=== PATIENT | male | born 1985 ===

== ENCOUNTER 2025-07-26 20:03 | Emergency (ER) | payer MEDICAID ==
[~2025-07-26] VITALS: Ht 182.9 cm; Wt 125.0 kg
[2025-07-26 20:13] VITALS: BP_SYST 169
--- NOTE | 2025-07-26 22:10 | RADIOLOGY REPORT ---
EXAM: DI CHEST,SINGLE VIEW CLINICAL HISTORY: SOB TECHNIQUE: Single AP view of the chest WID: COMPARISON: None FINDINGS: Lines and tubes: None Chest: The heart size and pulmonary vasculature is within normal limits. No pleural effusion, pneumothorax, or consolidation. The osseous structures are grossly intact. Multilevel thoracic spondylosis IMPRESSION: 1. No acute cardiopulmonary abnormality.
[2025-07-26] MEDS ORDERED: ipratropium/albuterol 3ml nebule NEB PRN (23:35)
[2025-07-26 23:43] VITALS: PULSE 86; RESP 16; O2SAT 96
[2025-07-26] MEDS: albuterol 2.5 MG/3 ML nebule NEB ONE (23:43)
[2025-07-26 23:51] VITALS: PULSE 88; RESP 16
[2025-07-27] MEDS: dexamethasone sod phosphate 10mg/ml inj IM STA (00:05)
--- NOTE | 2025-07-27 00:15 | Physician Documentation ---
History of Present Illness ~ Chief Complaint: Shortness of Breath Stated Complaint: DIFFICULTY BREATHING Time Seen by MD: 22:57 HPI Patient 40-year-old male who reports to the emergency department for shortness of breath accompanied by inspiratory and expiratory wheezing. Patient reports that he has been living at a inpatient facility for approximately a month. Patient reports that he has been experiencing illness for approximately a week with progression in his shortness of breath cough and wheezing. Reports he has a history of asthma patient has not used an inhaler. Patient denies fever chills nausea vomiting diarrhea at this time. Patient denies chest pain chest pressure radiating pain palpitations syncopal episodes lightheadedness dizziness or any other concerning symptoms this time. Review of Systems ROS As stated above in the HPI, otherwise all systems are reviewed and negative. Physical Exam Vital Signs: Temperature: 98.0, Source: Temporal, Heart Rate: 88, Respiratory Rate: 16, BP: 169/, Pulse Oximetry: 96, Weight: 125.000 Oxygen Flow Rate: 0 Physical Exam VITALS: Reviewed and as above. GENERAL: Alert, no apparent distress. HEENT: Normocephalic, atraumatic, PERRL, EOMI, dry mucosa, no erythema RESPIRATORY: Mild inspiratory expiratory wheezes on the right side noted auscultation, moving air into the bases bilaterally, cough with deep inspiration noted. CHEST: No accessory muscle use, no retractions CV: Regular rate, rhythm, no edema, no murmur, No: JVD GI: Soft, non-tender, bowels sounds present, no rebound, guarding, or rigidity BACK: No CVA tenderness, or swelling MUSCULOSKELETAL No deformities, no edema SKIN: Warm and dry, no rash NEURO: Oriented x4, No motor or sensory deficit PSYCH: Normal mood and affect, no agitation Progress Results/Orders Results/Orders Orders - SHELLEY CLIFTON [employer] Chest,Single View (07/26/25 20:16) Ipratropium/Albuterol Nebule (Ipratrop/A (07/26/25 23:35) * Rt Notification Q1H (07/26/25 23:31) Completed Orders - SHELLEY CLIFTON [employer] Chest,Single View (07/26/25 20:16) Albuterol 2.5mg/3ml Nebule (Proventil 2. (07/26/25 23:35) Dexamethasone Inj (Decadron 10mg/Ml Inj) (07/26/25 23:31) Medications Received in ER Medications (Trade) Dose Ordered Sig/Basil Route PRN Reason Start Time Stop Time Status Last Admin Dose Admin (Proventil 2.5 MG/3ML nebule) 2.5 mg ONCE ONCE NEB 07/26/25 23:35 07/26/25 23:36 DC 07/26/25 23:43 2.5 MG (Decadron 10mg/ ml inj) 10 mg ONCE STAT IM 07/26/25 23:31 07/26/25 23:33 DC 07/27/25 00:05 10 MG Vital Signs 07/26/25 07/26/25 07/26/25 20:13 23:43 23:51 Temp 98.0 Pulse 66 86 88 Resp 18 16 16 B/P (MAP) 169/ Pulse Ox 98 96 O2 Delivery Room Air* Room Air* O2 Flow Rate 0 0 0 FiO2 21 21 Medical Decision Making Findings This patient presents with dyspnea, most likely secondary to URI. Presentation not consistent with acute cardiac etiologies to include ACS (non ischemic ekg, unremarkable trop), CHF, pericardial effusion / tamponade . Presentation not consistent with acute respiratory etiologies to include acute PE (Wells low risk), pneumothorax , asthma, COPD exacerbation, allergic etiologies, or infectious etiologies such as PNA. Presentation also not consistent with non- cardiopulmonary causes to include toxidromes, metabolic etiologies such as acidemia or electrolyte derangements, sepsis, neurologic causes (i.e. demyelinating diseases). Patient received DuoNeb treatment and dexamethasone steroids while here in the emergency department with improvement. The patient will follow up with his primary care provider. Patient will return to the emergency department with any worsening of his current symptoms or any additional concerning symptoms that we discussed here today i.e. increased shortness of breath chest pain chest pressure lightheadedness dizziness fever chills nausea vomiting diarrhea or any other concerning symptoms. Differential Dx:Considerations: Include: anxiety, asthma, bronchitis, cardiogenic shock, CHF, COPD, dysrhythmia, hypertension, accelerated, hypertension, essential, hypertension, malignant, hyperventilation, hyponatremia, myocardial infarction, panic attack, pneumonia, pneumonitis, pneumothorax, PSVT, pulmonary embolism, respiratory distress, respiratory failure, sinusitis, upper resp. infection, other Departure Disposition: 01 HOME / SELF CARE / HOMELESS Impression: Primary Impression: Acute upper respiratory infection Additional Impressions: Cough Shortness of breath Asthma Condition: Stable Discharge Instructions: Asthma, Adult, [id number], Upper Respiratory Infection, Adult Additional Instructions: This patient presents with dyspnea, most likely secondary to URI. Presentation not consistent with acute cardiac etiologies to include ACS (non ischemic ekg, unremarkable trop), CHF, pericardial effusion / tamponade . Presentation not consistent with acute respiratory etiologies to include acute PE (Wells low risk), pneumothorax , asthma, COPD exacerbation, allergic etiologies, or inf ectious etiologies such as PNA. Presentation also not consistent with non- cardiopulmonary causes to include toxidromes, metabolic etiologies such as acidemia or electrolyte derangements, sepsis, neurologic causes (i.e. demyelinating diseases). Patient received DuoNeb treatment and dexamethasone steroids while here in the emergency department with improvement. The patient will follow up with his primary care provider. Patient will return to the emergency department with any worsening of his current symptoms or any additional concerning symptoms that we discussed here today i.e. increased shortness of breath chest pain chest pressure lightheadedness dizziness fever chills nausea vomiting diarrhea or any other concerning symptoms. Tylenol ibuprofen as needed for discomfort. Albuterol inhaler prescribed. Please follow up with the primary care provider. Please return to the emergency department with any worsening or recurrent symptoms or any additional concerning symptoms that we discussed here today. Referrals: NO PRIMARY CARE PROVIDER (PCP) Prescriptions albuterol inhaler (Pro-Air Inhaler) 8.5 Gm Inhaler 1-2 PUFFS PO Q4H PRN for shortness of breath for 90 Days, #1 INH Prov: SHELLEY CLIFTON 07/27/25 Education Educated: Patient Educated regarding: diagnosis, treatment, need for follow up Signature Scribe Signature: A Attestation: Scribed for Shelley Clifton by SELENA Acosta . 07/27/25 00:18 SHELLEY CLIFTON Jul 27, 2025 00:14
[2025-07-27] MEDS ORDERED: ALBU8HFA PO (00:17)
[2025-07-27 00:20] VITALS: TEMP 98
== END 2025-07-27 00:25 | disposition home or self-care (01) ==
LOC: ER 20:05
DX: J06.9 Acute upper respiratory infection, unspecified (principal); J45.909 Unspecified asthma, uncomplicated
CPT/HCPCS: 71045; 94640; 96372; 99283; J1100; 94760

== ENCOUNTER 2025-07-27 19:16 | Emergency (ER) | payer MEDICAID ==
[~2025-07-27 19:16] MED LIST: ALBU8HFA PO
== END 2025-07-27 21:28 | disposition left against medical advice (07) ==
LOC: ER 19:16
DX: Z00.8 Encounter for other general examination (principal); Z53.21 Procedure and treatment not carried out due to patient leaving prior to being seen by health care provider